=== PATIENT | male | born 1970 | race Two or more races ===

== ENCOUNTER 2017-07-18 15:13 | Outpatient (CLI) | payer OTHER | END 2017-07-18 15:17 | disposition home or self-care (01) | LOC: RAD 501 15:13 | DX: M54.5 Low back pain (principal) ==

== ENCOUNTER 2018-03-15 12:24 | Outpatient (CLI) | payer OTHER | END 2018-03-15 12:26 | disposition home or self-care (01) | LOC: SONOGRAMA 12:24 | DX: N63.14 Unspecified lump in the right breast, lower inner quadrant (principal) ==

== ENCOUNTER 2019-11-29 10:48 | Emergency (ER) | payer OTHER ==
[~2019-11-29] VITALS: Ht 170.2 cm; Wt 72.6 kg
[2019-11-29] MEDS ORDERED: IBU400 MG (11:06)
[2019-11-29] MEDS ORDERED: METHYLPREDNISOLONE (11:08)
[2019-11-29] MEDS ORDERED: SKELAXIN800 MG PO (15:32)
[2019-11-29] MEDS ORDERED: PERCOCET 5-3251 EACH PO (15:32)
[2019-11-29] MEDS ORDERED: VOLTAREN-XR100 MG PO (15:32)
== END 2019-11-29 17:26 | disposition home or self-care (01) ==
LOC: ER 10:48
DX: S33.5XXA Sprain of ligaments of lumbar spine, initial encounter (principal); M62.830 Muscle spasm of back; M54.41 Lumbago with sciatica, right side; X50.0XXA Overexertion from strenuous movement or load, initial encounter; Y93.89 Activity, other specified; Y92.89 Other specified places as the place of occurrence of the external cause; Y99.8 Other external cause status

== ENCOUNTER 2020-03-10 08:59 | Outpatient (CLI) | payer OTHER ==
[~2020-03-10 08:59] MED LIST: IBU400 MG; METHYLPREDNISOLONE; PERCOCET 5-3251 EACH PO; SKELAXIN800 MG PO; VOLTAREN-XR100 MG PO
== END 2020-03-10 09:07 | disposition home or self-care (01) ==
LOC: RAD 08:59
PROVIDERS: ATTEND Internal Medicine Cardiovascular Disease
DX: I10 Essential (primary) hypertension (principal)

== ENCOUNTER 2023-02-04 10:09 | Outpatient (CLI) | payer OTHER | END 2023-02-04 10:19 | disposition home or self-care (01) | LOC: RAD 10:09 | PROVIDERS: ATTEND General Practice | DX: M79.672 Pain in left foot (principal); M79.671 Pain in right foot ==

== ENCOUNTER 2023-02-04 10:43 | Outpatient (CLI) | payer OTHER | END 2023-02-04 10:44 | disposition home or self-care (01) | LOC: NUCLEAR 10:43 | PROVIDERS: ATTEND General Practice | DX: I73.9 Peripheral vascular disease, unspecified (principal); R60.0 Localized edema ==

== ENCOUNTER 2023-11-13 02:38 | Emergency (ER) | payer OTHER ==
[~2023-11-13] VITALS: Ht 172.7 cm; Wt 74.8 kg
[2023-11-13] MEDS ORDERED: HYOSCYAMINE SULFATE 0.125 MG TAB.SUBL SL STA (04:16)
[2023-11-13 04:51] LABS: AMYLASE 93 U/L (25-115); LIPASE 91 U/L (13-75)
[2023-11-13 04:53] LABS: CALCIUM 9.4 mg/dL (8.5-10.1); CREATININE SERUM 1.23 mg/dL (0.70-1.30); GFR 61.32; POTASSIUM 4.43 mEq/L (3.5-5.1)
[2023-11-13 05:02] LABS: HEMATOCRIT 45.3 % (39.0-48.0); HEMOGLOBIN 15.9 g/dL (13-16.00); MEAN CELL VOLUME 91.4 fL (80.0-100.00); MEAN CORPUSCULAR HEMOGLOBIN 32.2 pg (27.00-32.0); MEAN CORPUSCULAR HGB CONC 35.2 g/dl (32.0-36.0); PLATELET COUNT 255 K/uL (150-450); RED BLOOD COUNT 4.95 M/uL (4.00-6.00); RED CELL DISTRIBUTION WIDTH 13.1 % (11.5-14.5)
== END 2023-11-13 07:27 | disposition home or self-care (01) ==
LOC: ER 02:40
DX: K52.9 Noninfective gastroenteritis and colitis, unspecified (principal)